=== PATIENT | female | born 1965 | race Caucasian/White ===

== ENCOUNTER 2024-10-02 23:18 | Observation (INO) | payer OTHER, SELFPAY ==
[2024-10-02] VITALS (9 sets, daily range): BP systolic 128–191; BP diastolic 63–111; BMI 34.8; BMI 34.2
[2024-10-02 16:58] LABS: % Basophils 0.5 % (0-2); % Eosinophils 1.5 % (0-6); % Immature Granulocytes 0.2 % (0-0.5); % Lymphocytes 43.5 % (20.5-51.1); % Monocytes 7.7 % (1.7-9.3); % Neutrophils 46.6 % (42.2-75.2); Absolute Eosinophils 0.1 10^3/uL (0-0.7); Absolute Lymphocytes 3.9 10^3/uL (1.2-3.4); Absolute Monocytes 0.7 10^3/uL (0.1-0.6); Absolute Neutrophils 4.1 10^3/uL (1.4-6.5); Hematocrit 37.8 % (37.0-47.0); Hemoglobin 12.7 g/dL (12.0-16.0); Mean Corp Hgb Conc. 33.6 g/dL (33.0-37.0); Mean Corpuscular Hgb 31.2 pg (27.0-31.0); Mean Corpuscular Volume 92.9 fL (81.0-99.0); Mean Platelet Volume 10.2 fL (7.4-10.4); Nucleated Red Blood Cells % 0 %; Platelet Count 246 10^3/uL (130-400); Red Blood Cell Count 4.07 10^6/uL (4.20-5.40); Red Cell Dist. Width 12.9 % (11.5-14.5); White Blood Cell Count 8.9 10^3/uL (4.8-10.8)
[2024-10-02 17:15] LABS: ALT (SGPT) 19 U/L (0-35); AST (SGOT) 18 U/L (14-36); Albumin 4.5 g/dl (3.5-5.0); Alkaline Phosphatase 131 U/L (38-126); Blood Urea Nitrogen 14 mg/dl (7-17); Calcium 9.3 mg/dl (8.4-10.2); Carbon Dioxide 25 mmol/L (22-30); Chloride 104 mmol/L (98-107); Glucose 153 mg/dl (70-99); Potassium 3.9 mmol/L (3.5-5.1); Sodium 137 mmol/L (135-145); Total Bilirubin 0.7 mg/dl (0.2-1.3); Total Protein 7.3 g/dl (6.3-8.2); eGFR > 60.00
[2024-10-02 17:25] LABS: Troponin I < 0.012 ng/ml
--- NOTE | 2024-10-02 19:13 | ED.GENMED ---
History of Present Illness
General
Chief Complaint: Chest Pain
Time Seen by Provider: 10/02/24 19:13
History of Present Illness
History of Present Illness:
TIME OF INITIAL ENCOUNTER: 7:20 PM
HPI: Patient presents with chest discomfort. This started about 24 hours ago while at rest. Radiated from substernal region to jaw, but resolved after 2min last night. Some intermittent non-radiating pain today. Takes TUMS normally and today no
relief. No dx of GERD. Remote smoking history.
EXAM:
GENERAL: Well appearing in no distress
HEENT: Moist oral mucosa
CARDIOVASCULAR: No murmurs, normal heart rate, regular rhythm, No chest wall tenderness
PULMONARY: No respiratory distress, breath sounds are clear and equal
ABDOMEN: Soft with no peritoneal signs, no tenderness
NEUROLOGIC: Excellent strength all extremities, no coordination deficits
PSYCHIATRIC: Appropriate mental status, normal insight and judgement
EXTREMITIES: No edema, nontender
SKIN: No abnormal findings
NUMBER AND COMPLEXITY OF PROBLEMS ADDRESSED AT THE ENCOUNTER
� Chronic conditions affecting care: IDDM
� Acute Exacerbation and/or Progression of Chronic Illness: This is an acute problem
� Differential Diagnosis includes: Musculoskeletal chest wall pain, GERD, anxiety, ACS
AMOUNT AND/OR COMPLEXITY OF DATA TO BE REVIEWED AND ANALYZED
� I performed an independent evaluation of and my interpretation is:
EKG: Sinus 100, nonspecific ST abnormality/subtle inferolateral ST depression with no old to compare
CT:
X-rays: Chest x-ray unremarkable
Laboratory Studies: Troponins negative x 2
Other: Ultrasound imaging shows no gallstones
� Review of other/old records: No old records available for review
� Clinical information was obtained by an independent historian: I spoke to at bedside
� Prescriptions/Medications Considered but not given:
� Further testing considered but not performed:
RISK OF COMPLICATIONS AND/OR MORBIDITY OR MORTALITY OF PATIENT MANAGEMENT
� Social determinants of health affecting care: Lives at home
� Discussion with other providers: Given the slight abnormality on EKG, I discussed case with Dr. Ceja. Dr. Ceja recommends hospitalist admit and likely stress test tomorrow. Dr. Bobby for admission
� Escalation of care including admission/observation vs risk of discharge considered: The patient has never been to a apprentice cosmetologist in the past. EKG slightly abnormal and discussed with cardiology. Troponins negative x 2 today
and the majority of her symptoms were yesterday. She never had any exertional symptoms. Will plan keeping in the hospital as she has some very subtle ongoing symptoms along with a subtle abnormality on EKG.
ANY OTHER UPDATES:
Phy Exam
Physical Exam
Physical Exam:
See HPI
Scores
Heart Score for Chest Pain Patients
STEMI patient?: Not applicable
Course
Orders/Labs/Results
Orders:
Orders
10/02/24 16:31
Electrocardiogram (*1) Urgent
Reason for Study: Chest Pain
EKG- Treatment ONCE
10/02/24 16:43
Complete Blood Count/With Diff Urgent
Comprehensive Metabolic Panel Urgent
Lipase Urgent
Troponin I Urgent
10/02/24 19:41
Add On- LAB Urgent
Tests Added?: lipase
US Abdomen Complete/Upper Urgent
Comment:
Reason For Exam: upper abd pain
10/02/24 19:42
CR Chest - 2 Views Urgent
Comment:
Reason For Exam: cp
10/02/24 20:22
Troponin I Urgent
Abnormal Lab Results
10/02/24
16:43
RBC 4.07 L 10^6/uL
(4.20-5.40)
MCH 31.2 H pg
(27.0-31.0)
Absolute Lymphs (auto) 3.9 H 10^3/uL
(1.2-3.4)
Absolute Monos (auto) 0.7 H 10^3/uL
(0.1-0.6)
Glucose 153 H mg/dl
(70-99)
Alkaline Phosphatase 131 H U/L
(38-126)
10/02/24 16:43
10/02/24 16:43
Vital Signs
Initial and Last Documented VS:
Initial Vital Signs
Temp Pulse Resp BP Pulse Ox
36.9 C 98 16 191/111 100
10/02/24 16:34 10/02/24 16:34 10/02/24 16:34 10/02/24 16:34 10/02/24 16:34
Last Documented Vital Signs
Temp Pulse Resp BP Pulse Ox
36.9 C 72 10 143/63 99
10/02/24 16:34 10/02/24 22:30 10/02/24 22:30 10/02/24 22:00 10/02/24 22:00
*Critical Care Note
Total Time (30-74mins, 75-104mins- exclusive of procedures): Not Applicable
ED Attending Note
-
Portions of this chart may have been created with voice recognition software.� Occasional wrong word or��sound alike� substitutions may have occurred due to the inherent limitations of voice recognition software.
Discharge Plan
Departure
Patient Disposition: Admit
Date of Disposition: 10/02/24
Time of Disposition: 22:34
Presentation/result/management discussed w/ accepting MD/DO: Hospitalist
Patient with high blood pressure during this ER visit?: Yes
Discharge Problem:
Chest pain
Prescriptions:
No Action
insulin aspart U-100 [Novolog FlexPen U-100 Insulin] 100 unit/mL (3 mL) Insulin Pen
13 unit SC TID
insulin glargine [Lantus U-100 Insulin] 100 unit/mL Solution
SC QPM
Patient Comments:
Pt states 'I take anywhere from 32-42units HS depending on my numbers'
Referrals:
Yvette Hamilton, [Family Provider] -
Interventions
Interventions:
*Risk Screen - Suicide Last Done: 10/02/24 16:34
*General Assessment Last Done: 10/02/24 17:57
*Neglect/Abuse Screening Last Done: 10/02/24 16:34
*ED- Fall Risk Assessment Last Done: 10/02/24 17:57
*ED COVID-19 Vaccine History Last Done: 10/02/24 17:57
ED- Cardiac Assessment Last Done: 10/02/24 17:57
Discharge Date and Time
Print Language: YORUBA
[2024-10-02 20:21] LABS: Lipase 82 U/L (23-300)
[2024-10-02 20:53] LABS: Troponin I < 0.012 ng/ml
--- NOTE | 2024-10-02 22:36 | HPS.HSE ---
Family Physician
-
Family Physician: Yvette Hamilton
Chief Complaint
-
chest pain
History of Present Illness
59 year old with PMH for type 2 Dm presented with mid sternum chest pain radiating to her jaw neck since last night.it last for 45 minutes. but the pain radiating underneath her left left breast, back and neck persisted throughout the days. felt
better when she is up and walking around. denied sob. stated cough in the morning. denied BRASHER,dizzy or syncope. denied fever, chills. denied abdominal pain,n,v,d. denied dysuria or hematuria.
upon arrival her trop is negative. EKG with NSR with ST and T wave abnormality. relieved asa in ER. admitting for further management.
Medical History
Past Medical History
Past Medical History: Reports Other
Additional Past Medical History:
type 2 Dm
Past Surgical History: Reports Other
Additional Past Surgical History:
c section
Social History
Tobacco: Non-smoker
Alcohol: None
Drug: None
Family History
Family History: Not pertinent
Allergies / Home Medications
Allergies reflects when Allergies were last updated in [employer].
Home Medications with original date entered in [employer]
Allergy/Medication List:
Allergies
Allergy/AdvReac Type Severity Reaction Status Date / Time
No Known Allergies Allergy Verified 10/02/24 22:12
Home Medications
cholecalciferol (vitamin D3) 1,250 mcg (50,000 unit) capsule 1,250 mcg PO NIÑO 10/02/24
insulin aspart U-100 100 unit/mL (3 mL) subcutaneous pen (Novolog FlexPen U-100 Insulin aspart) 12 - 13 sliding scale dose SC AC 10/02/24
insulin glargine 100 unit/mL subcutaneous solution (Lantus U-100 Insulin) 32 - 42 unit SC HS 10/02/24
Review of Systems
-
Constitutional: Reports No Symptoms
EENT: Reports No Symptoms
Respiratory: Reports No Symptoms
Cardiac: Reports Chest Pain
Abdomen/GI: Reports No Symptoms
: Reports No Symptoms
Musculoskeletal: Reports No Symptoms
Skin: Reports No Symptoms
Neurological: Reports No Symptoms
Endocrine: Reports No Symptoms
Hematologic/Lymphatic: Reports No Symptoms
Psych: Reports No Symptoms
Physical Exam
Vital Signs
Vital Signs
Temp Pulse Resp BP Pulse Ox
98.4 F 67 13 153/83 99
10/02/24 16:34 10/02/24 20:34 10/02/24 20:34 10/02/24 20:00 10/02/24 20:15
Physical Exam
General: Well Developed, Well Nourished and No Apparent Distress
HEENT: NormoCephalic, Moist mucous membranes and Atraumatic
Respiratory: Clear
Cardiac: S1/S2 and Regular Rhythm; No Murmur or Rub
GI: Soft, Non Tender, Non Distended and Normal Bowel Sounds; No Organomegaly
Rectal: Deferred by Provider
Musculoskeletal: No Clubbing, No Cyanosis and No Edema
Skin: No Rash
Neuro: AO x 3 and Nonfocal/grossly intact
Psych: Calm
Laboratory Results
-
10/02/24 16:43
10/02/24 16:43
Laboratory Results
Total Bilirubin 0.7 mg/dl (0.2-1.3) 10/02/24 16:43
AST 18 U/L (14-36) 10/02/24 16:43
ALT 19 U/L (0-35) 10/02/24 16:43
Alkaline Phosphatase 131 U/L (38-126) H 10/02/24 16:43
Troponin I < 0.012 ng/ml 10/02/24 20:22
Lipase 82 U/L (23-300) 10/02/24 16:43
Data Reviewed
-
Ultrasound: Report Reviewed by me
Lab Data: Labs Reviewed by me
Impression/Plan
-
#substernal chest pain radiating to back and jaw
-possible stress test tomorrow
-keep patient NPO.
-cardiology consulted
-trend trop,ekg
-chest x ray pending
-EKG with NSR with nonspecific ST and T wave abnormality
-asa continued
-nitro prn for pain
#likely hepatic steatosis
-US of abdomen with the impression of Moderate to severe diffusely increased echogenicity throughout the liver suggesting MODERATE to SEVERE DIFFUSE LIVER DISEASE.
2. No sonographic evidence for cholelithiasis, acute cholecystitis, or biliary obstruction.
-LFT normal
#type 2 Dm
-sliding scale
-Lantus 16 at hs
#DVT prophylaxis
-Lovenox
#CODE status
-full code
--- NOTE | 2024-10-02 22:53 | W.PN.UPDATE ---
Update Note
Progress Note Update
This is an addendum to the H&P written by Lin Reyes on 10/02/2024.� Patient seen and examined independently with HOG TENDER.
59-year-old female past medical history of type 2 diabetes presenting with chest discomfort starting 24 hours ago at rest.� Pain radiates to substernal region to her jaw and resolved after 2 minutes.� Some intermittent pain today.
EKG shows normal sinus rhythm, ST depressions in leads II, V4 to V6.� First 2 troponins are negative.
Chest x-ray appears to be unremarkable although report pending.� Abdominal ultrasound shows moderate to severe diffusely increased echogenicity throughout the liver suggesting moderate to severe diffuse liver disease.
Cardiology consulted and planning on likely stress test tomorrow.� N.p.o. past midnight. Reduce insulin.�
[2024-10-02 23:09] LABS: Glucose - Point of Care 112 mg/dl (70-99)
[2024-10-02] MEDS: LOW STRENGTH ASPIRIN 81 MG PO (23:09)
[2024-10-03 03:10] VITALS: BP 130/68
[2024-10-03 03:43] LABS: Troponin I < 0.012 ng/ml
[2024-10-03 06:00] VITALS: BMI 34.1
[2024-10-03 06:03] LABS: Glucose - Point of Care 105 mg/dl (70-99)
[2024-10-03] MEDS: NOVOLOG FLEXPEN-LOW RESISTANCE SC (06:16)
[2024-10-03 07:24] VITALS: BP 128/63
[2024-10-03 07:35] LABS: Troponin I < 0.012 ng/ml
[2024-10-03 07:49] LABS: HDL Cholesterol 35 mg/dl; LDL Cholesterol, Calculated 110 mg/dl; Total Cholesterol 206 mg/dl (50-199); Triglyceride 309 mg/dl (10-149); Very Low Density Lipoprotein 61 mg/dl (0-30)
[2024-10-03] MEDS: LOW STRENGTH ASPIRIN 81 MG PO (07:54)
--- NOTE | 2024-10-03 08:37 | CON.CAR ---
Consultation
Consultation Request
Date/Time Consultation Requested: 10/03/24
Date/Time Consultation Performed: 10/03/24
Requesting Provider: Dr Leigh
Performing Provider: Dr Ceja
Reason for Consultation: cp
Medical History
-
Chief Complaint: cp
History of Present Illness:
[place] is a pleasant 59-year-old female with a past medical history of type 2 diabetes who is insulin-dependent, statin intolerance, history of preeclampsia and obesity who presented for evaluation of chest pain. 2 nights ago, while watching
television, she had sudden onset of 10 out of 10 chest pain that she describes as a pressure in the center of her chest that wraps around to her back at the same time she had symptoms of pain in her neck and jaw. She thought it was indigestion and
took 3 Tums without relief, but this gradually resolved after drinking some water 45 minutes later. In the morning when she woke up she had 2-3 out of 10 chest pain that was much less severe. She called her primary care doctor who recommended an
ED evaluation. While in the ED she was chest pain-free. EKG did show normal sinus rhythm with diffuse nonspecific ST depressions and slight elevation in aVR. This has gradually resolved. Troponins have been negative x 3.
She quit smoking over 25 years ago. She is typically quite active walking 3 to 5 miles 3 times a week and an hour to an hour and a half.
Past Medical History
Past Medical History: Hypercholesterolemia and IDDM
Past Surgical History: (X 2)
Social History
Tobacco: Former Smoker (Quit over 25 years ago)
Alcohol: None
Employment: Employed
Family History
Family History: CAD (And her mother in her late 60s)
Allergies / Home Medications
Allergy/AdvReac Type Severity Reaction Status Date / Time
No Known Allergies Allergy Verified 10/02/24 22:12
�Medication �Instructions �Recorded �Confirmed �Type
cholecalciferol (vitamin D3) 1,250 1,250 mcg PO NIÑO 10/02/24 10/02/24 History
mcg (50,000 unit) capsule
insulin aspart U-100 100 unit/mL 12 - 13 sliding scale dose SC AC 10/02/24 10/02/24 History
(3 mL) subcutaneous pen (Novolog
FlexPen U-100 Insulin aspart)
insulin glargine 100 unit/mL 32 - 42 unit SC HS 10/02/24 10/02/24 History
subcutaneous solution (Lantus
U-100 Insulin)
Review of Systems
-
All other systems: Negative unless noted
Physical Exam
Vital Signs
Temp Pulse Resp BP Pulse Ox
98.0 F 64 17 128/63 96
10/03/24 07:24 10/03/24 07:24 10/03/24 07:24 10/03/24 07:24 10/03/24 07:24
Lab Results
10/02/24 16:43
10/02/24 16:43
Troponin I < 0.012 ng/ml 10/03/24 07:03
Physical Exam
General: Well Developed, Well Nourished, No Apparent Distress, Comfortable and Respiratory Distress
HEENT: Normocephalic
Respiratory: Clear; Negative Wheezes, Crackles, Rhonchi or Non Labored Respirations
Cardiac: S1/S2 and Regular Rhythm; Negative Murmur, Rub or Peripheral Edema
Neuro: AO x 3
Impression / Plan
-
Dee Dee is a 59-year-old female with a past medical history of insulin-dependent type 2 diabetes, obesity, previous history of preeclampsia and untreated hyperlipidemia due to statin intolerance who presents for chest pain.
Chest pain: Symptoms have both typical and atypical features. It occurred at rest with normal troponins. But description is quite concerning. Initial EKG showed slight ST depressions. Risk factors include preeclampsia, obesity and
hyperlipidemia. However the differential includes esophageal spasm, reflux, etc. Recommend further evaluation to rule out cardiac etiology
Will arrange for stress echocardiogram.
Hyperlipidemia: Reports statin intolerance, sounds as though she only tried Lipitor in the past.
-Start alternative dosing regimen of statin. Will start with rosuvastatin 10 mg Monday. She should take co-Q10 100 mg twice a day. Will uptitrate as able as an outpatient.
Obesity: Given her diabetes, she may be a good candidate for GLP-1 agonist. Will defer to primary care doctor. Otherwise dietary restriction is needed.
Data Reviewed
-
EKG: Tracing Personally Visualized and interpreted (Initially EKGs with sinus rhythm with nonspecific ST depressions slight elevation in aVR. These gradually improve over the course of her hospitalization.) and Discussed with Physician (Discussed
findings and recommendations with Dr. Leigh)
[2024-10-03 11:22] VITALS: BP 143/96
[2024-10-03 11:52] LABS: Glucose - Point of Care 173 mg/dl (70-99)
[2024-10-03] MEDS: NOVOLOG FLEXPEN-LOW RESISTANCE 1 UNITS SC (12:46)
--- NOTE | 2024-10-03 12:55 | W.DS.TRANS ---
DC Summary - Brand Mgr
-
Discharge Instructions:
Discharge Diagnosis/Procedures Work-up for chest pain
Diet Diabetic, Carb Controlled
Instructions:
Stand-Alone Forms:
Changes to Home Medications: Yes
Discharge Medications:
DC Medications w/original date entered in [employer].
cholecalciferol (vitamin D3) 1,250 mcg (50,000 unit) capsule 1,250 mcg PO NIÑO 10/02/24
insulin aspart U-100 100 unit/mL (3 mL) subcutaneous pen (Novolog FlexPen U-100 Insulin aspart) 12 - 13 sliding scale dose SC AC 10/02/24
insulin glargine 100 unit/mL subcutaneous solution (Lantus U-100 Insulin) 32 - 42 unit SC HS 10/02/24
aspirin 81 mg chewable tablet 81 mg PO DAILY #30 tabs 10/03/24
rosuvastatin 10 mg tablet 10 mg PO MoWeFr@0800 #30 tabs 10/03/24
Home Medication Changes
ASA and statin initiated
Pending Results: No
== END 2024-10-03 14:58 | disposition home or self-care (01) ==
LOC: 1 ACUTE 23:18
PROVIDERS: Emergency Medicine; Registered Nurse; ADMITTING PHYSICIAN Hospitalist; ATTENDING PHYSICIAN Internal Medicine; CONSULT PHYSICIAN Internal Medicine Cardiovascular Disease; EMERGENCY PHYSICIAN Emergency Medicine; FAMILY PHYSICIAN Internal Medicine
DX: R07.9 Chest pain, unspecified (principal); E11.69 Type 2 diabetes mellitus with other specified complication; K76.0 Fatty (change of) liver, not elsewhere classified; E66.9 Obesity, unspecified; I70.0 Atherosclerosis of aorta; Z68.34 Body mass index [BMI] 34.0-34.9, adult; Z87.891 Personal history of nicotine dependence; Z79.4 Long term (current) use of insulin; Z82.49 Family history of ischemic heart disease and other diseases of the circulatory system
CPT/HCPCS: 93017; 71046; 76700; 80053; 80061; 82962; 83036; 83690; 84484; 85025; 93005; 93350; 99285; G0378